=== PATIENT | female | born 1965 | race Caucasian/White ===

== ENCOUNTER 2017-04-11 21:35 | Emergency (ER) | payer MEDICAID ==
[~2017-04-11] VITALS: Ht 180.3 cm; Wt 64.1 kg
[~2017-04-11 21:35] MED LIST: ALBU18HF2 IH
[2017-04-11] MEDS ORDERED: MORPHINE SULFATE 4 MG/ML CPJ (NOT FOR IM USE) IV ONE (22:45)
[2017-04-11] MEDS ORDERED: SILVER SULFADIAZINE 1% CREAM 25GM TOP ONE (22:45)
[2017-04-11] MEDS ORDERED: MORPHINE SULFATE 10 MG/ML CPJ IM ONE (23:00)
[2017-04-12 00:55] VITALS: BP 133/89
== END 2017-04-12 01:05 | disposition home or self-care (01) ==
LOC: ER 21:35
DX: T22.00XA Burn of unspecified degree of shoulder and upper limb, except wrist and hand, unspecified site, initial encounter (principal); T23.002A Burn of unspecified degree of left hand, unspecified site, initial encounter; J45.909 Unspecified asthma, uncomplicated; M32.9 Systemic lupus erythematosus, unspecified; F17.200 Nicotine dependence, unspecified, uncomplicated; F12.10 Cannabis abuse, uncomplicated; Z90.710 Acquired absence of both cervix and uterus; Z41.1 Encounter for cosmetic surgery; Z98.890 Other specified postprocedural states; X19.XXXA Contact with other heat and hot substances, initial encounter; Y93.89 Activity, other specified; Y92.89 Other specified places as the place of occurrence of the external cause; Y99.8 Other external cause status
CPT/HCPCS: 16020; 96372; 99284; J2270; Z7610

== ENCOUNTER 2019-12-14 00:46 | Emergency (ER) | payer MEDICAID ==
[~2019-12-14] VITALS: Ht 170.2 cm; Wt 69.0 kg
[2019-12-14] MEDS ORDERED: MORPHINE SULFATE 4 MG/ML CPJ (NOT FOR IM USE) IV STA (01:21)
[2019-12-14] MEDS ORDERED: ONDANSETRON HCL 4MG/2ML INJ IV STA (01:21)
[2019-12-14] MEDS ORDERED: LIDOCAINE HCL/PF 1% 10 MG/ML 5ML VIAL IJ ONE (03:30)
[2019-12-14] MEDS ORDERED: MIDAZOLAM HCL 2 MG/2 ML VIAL IV ONE (04:15)
[2019-12-14 06:43] VITALS: BP 129/92
== END 2019-12-14 06:46 | disposition home or self-care (01) ==
LOC: ER 00:46
DX: S52.502A Unspecified fracture of the lower end of left radius, initial encounter for closed fracture (principal); S52.612A Displaced fracture of left ulna styloid process, initial encounter for closed fracture; M21.832 Other specified acquired deformities of left forearm; J45.909 Unspecified asthma, uncomplicated; M32.9 Systemic lupus erythematosus, unspecified; I45.81 Long QT syndrome; W22.8XXA Striking against or struck by other objects, initial encounter; Y93.01 Activity, walking, marching and hiking; Y92.488 Other paved roadways as the place of occurrence of the external cause; Z90.710 Acquired absence of both cervix and uterus; Z91.048 Other nonmedicinal substance allergy status
CPT/HCPCS: 25605; 73090; 73100; 96374; 96375; 99285; J2250; J2270; J2405; J3490